=== PATIENT | female | born 1995 | race African-American/Black ===

== ENCOUNTER 2016-06-29 17:35 | Emergency (ER) | payer OTHER ==
[~2016-06-29] VITALS: Ht 157.5 cm; Wt 55.0 kg
[~2016-06-29 17:35] MED LIST: LEVE250 PO
[2016-06-29 18:20] VITALS: BP 101/59; PULSE 77; RESP 18; TEMP 99.2; O2SAT 100
[2016-06-29 18:40] VITALS: BP 118/72; PULSE 83; RESP 16; O2SAT 100
[2016-06-29] MEDS ORDERED: SODIUM CHLOR 0.9% 1000 ML INJ 1,000 ML IV ONE (19:04)
[2016-06-29] MEDS ORDERED: ACETAMINOPHEN 325 MG TAB PO ONE (19:15)
[2016-06-29] MEDS ORDERED: SODIUM CHLORIDE 0.9% FLUSH 5 ML FLUSH IVF PRN (19:15)
[2016-06-29 19:41] LABS: AUTOMATED NEUTROPHIL # 8.1 TH/MM3 (1.8-7.7); BASOPHIL # 0.1 TH/MM3 (0-0.2); BASOPHIL % 0.5 % (0.0-2.0); EOSINOPHIL % 0.2 % (0.0-4.0); HEMATOCRIT 31.6 % (35.0-46.0); LYMPH % 9.7 % (9.0-44.0); MEAN CORPUSCULAR HEMOGLOBIN 21.8 PG (27.0-34.0); MEAN CORPUSCULAR HGB CONC 31.2 % (32.0-36.0); MONO % 9.3 % (0.0-8.0); NEUT % 80.3 % (16.0-70.0); PLATELET COUNT 239 TH/MM3 (150-450); RED BLOOD COUNT 4.52 MIL/MM3 (4.00-5.30); RED CELL DISTRIBUTION WIDTH 16.6 % (11.6-17.2); WHITE BLOOD COUNT 10.2 TH/MM3 (4.0-11.0)
[2016-06-29 19:43] LABS: HEMO FLAGS AUTO DIFF
[2016-06-29 19:45] VITALS: RESP 16
[2016-06-29 19:49] LABS: ALKALINE PHOSPHATASE 72 U/L (45-117); ALT (GPT) 19 U/L (9-42); ANION GAP 10 MEQ/L (5-15); AST (GOT) 25 U/L (16-38); BICARBONATE 23.3 MEQ/L (21.0-32.0); BLOOD UREA NITROGEN 10 MG/DL (7-18); CHLORIDE 106 MEQ/L (98-107); GLOMERULAR FILTRATION RATE 111 ML/MIN (>89); MAGNESIUM 1.9 MG/DL (1.5-2.5); POTASSIUM 3.9 MEQ/L (3.5-5.1); SODIUM (NA) 139 MEQ/L (136-145); TOTAL BILIRUBIN ADULT 0.4 MG/DL (0.2-1.0)
[2016-06-29 20:18] LABS: PLATELET ESTIMATE SMEAR NORMAL (NORMAL); PLATELET MORPHOLOGY NORMAL (NORMAL); SCAN/DIFF AUTO DIFF CONFIRMED
--- NOTE | 2016-06-29 20:51 | RADRPT ---
EXAM DATE/TIME: 06/29/2016 20:00 [place] COMPARISON: No previous studies available for comparison. INDICATIONS : Syncope and seizure. RADIATION DOSE: 39.80 CTDIvol (mGy) MEDICAL HISTORY : Seizures. SURGICAL HISTORY : None. ENCOUNTER: Initial ACUITY: 1 day PAIN SCALE: Non-responsive LOCATION: cranial TECHNIQUE: Multiple contiguous axial images were obtained of the head. Using automated exposure control and adj ustment of the mA and/or kV according to patient size, radiation dose was kept as low as reasonably a chievable to obtain optimal diagnostic quality images. FINDINGS: CEREBRUM: The ventricles are normal for age. No evidence of midline shift, mass lesion, hemorrhage or acute in farction. No extra-axial fluid collections are seen. POSTERIOR FOSSA: The cerebellum and brainstem are intact. The 4th ventricle is midline. The cerebellopontine angle i s unremarkable. EXTRACRANIAL: The visualized portion of the orbits is intact. SKULL: The calvaria is intact. No evidence of skull fracture. CONCLUSION: Normal examination for a patient of this age. No significant change has occurred. zUair Bailey MD on June 29, 2016 at 20:49 Board Certified Radiologist. This report was verified electronically.
--- NOTE | 2016-06-29 21:54 | PD ---
HPI Chief Complaint: Seizure Time Seen by Provider: 18:55 Travel History International Travel<30 days: No Contact w/Intl Traveler<30days: No Traveled to known affect area: No History of Present Illness HPI Patient is a 20-year-old female who comes in after seizure today. She has history of seizures since 2013, and has been taking Keppra. She takes 750 mg of Keppra daily currently. She reports compliance with her medication. She says that recently she seems to be having more breakthrough seizures. She says she last had a seizure in April around [place] time. Today she comes in after having a seizure last night and then again this afternoon. She was seen to fall to the ground in her dorm room and vomit. One of the other students called the ambulance for her. She says she has been feeling well, denies any fever or chills. She does complain of a frontal headache right now. She says she has been under stress, which often causes her seizures. PFSH Past Medical History Asthma: No Blood Disorders: No Heart Rhythm Problems: No Cancer: No Cardiovascular Problems: No High Cholesterol: Yes Chemotherapy: No Chest Pain: No Congestive Heart Failure: No COPD: No Diabetes: No Diminished Hearing: No Endocrine: No Gastrointestinal Disorders: No Genitourinary: No Hypertension: No Immune Disorder: No Implanted Vascular Access Dvce: No Musculoskeletal: No Neurologic: No Psychiatric: No Reproductive: No Respiratory: No Radiation Therapy: No Seizures: Yes Sleep Apnea: No Thyroid Disease: No Tetanus Vaccination: < 5 Years Influenza Vaccination: No ?: Not LMP: UNK : 0 Para: 0 Miscarriage: 0 : 0 Past Surgical History Surgical History: No Previous Surgery Other Surgery: No Social History Alcohol Use: No Tobacco Use: No Substance Use: No Allergies-Medications (Allergen,Severity, Reaction): Coded Allergies: No Known Allergies (Unverified , 06/29/16) Reported Meds & Prescriptions Reported Meds & Active Scripts Active Reported Keppra (Levetiracetam) 250 Mg Tab 500 Mg PO BID Review of Systems Except as stated in HPI: all other systems reviewed are Neg General / Constitutional: No: Fever, Chills Eyes: No: Blurred Vision HENT: Positive: Headaches Cardiovascular: No: Chest Pain or Discomfort Respiratory: No: Cough, Shortness of Breath Gastrointestinal: No: Nausea, Vomiting Musculoskeletal: No: Edema, Pain Skin: No Rash, No Change in Pigmentation Neurologic: Positive: Seizures, No: Weakness, Dizziness Physical Exam Narrative GENERAL: Awake and alert, in no acute distress. SKIN: Warm and dry. HEAD: Atraumatic. Normocephalic. EYES: Pupils equal and round. No scleral icterus. Extraocular movements intact. ENT: Mucous membranes pink and moist. Bite rabago on the side of her tongue. NECK: Trachea midline. No JVD. No meningeal signs. CARDIOVASCULAR: Regular rate and rhythm. No murmur appreciated. RESPIRATORY: No accessory muscle use. Clear to auscultation. Breath sounds equal bilaterally. GASTROINTESTINAL: Abdomen soft, non-tender, nondistended. MUSCULOSKELETAL: No obvious deformities. No clubbing. No cyanosis. No edema. NEUROLOGICAL: Awake and alert. No obvious cranial nerve deficits. Motor grossly within normal limits. Normal speech. PSYCHIATRIC: Appropriate mood and affect; insight and judgment normal. Data Data Last Documented VS Vital Signs Date Time Temp Pulse Resp B/P Pulse Ox O2 Delivery O2 Flow Rate FiO2 06/29/16 19:45 16 06/29/16 18:40 83 118/72 100 Room Air 06/29/16 18:20 99.2 Orders Complete Blood Count With Diff (06/29/16 19:04) Drug Screen, Random Urine (06/29/16 19:04) Ct Brain W/O Iv Contrast(Rout) (06/29/16 ) Blood Glucose (06/29/16 19:04) Ecg Monitoring (06/29/16 19:04) Iv Access Insert/Monitor (06/29/16 19:04) Oximetry (06/29/16 19:04) Comprehensive Metabolic Panel (06/29/16 19:04) Sodium Chlor 0.9% 1000 Ml Inj (Ns 1000 M (06/29/16 19:04) Sodium Chloride 0.9% Flush (Ns Flush) (06/29/16 19:15) Ua Includes Microscopic (06/29/16 19:04) Urinalysis - C+S If Indicated (06/29/16 19:04) Ed Urine Pregnancytest Poc (06/29/16 19:04) Magnesium (Mg) (06/29/16 19:04) Phosphorus (Po4) (06/29/16 19:04) Acetaminophen (Tylenol) (06/29/16 19:15) Labs Laboratory Tests Test 06/29/16 06/29/16 19:10 21:45 White Blood Count 10.2 TH/MM3 Red Blood Count 4.52 MIL/MM3 Hemoglobin 9.9 GM/DL Hematocrit 31.6 % Mean Corpuscular Volume 70.0 FL Mean Corpuscular Hemoglobin 21.8 PG Mean Corpuscular Hemoglobin 31.2 % Concent Red Cell Distribution Width 16.6 % Platelet Count 239 TH/MM3 Mean Platelet Volume 8.8 FL Neutrophils (%) (Auto) 80.3 % Lymphocytes (%) (Auto) 9.7 % Monocytes (%) (Auto) 9.3 % Eosinophils (%) (Auto) 0.2 % Basophils (%) (Auto) 0.5 % Neutrophils # (Auto) 8.1 TH/MM3 Lymphocytes # (Auto) 1.0 TH/MM3 Monocytes # (Auto) 0.9 TH/MM3 Eosinophils # (Auto) 0.0 TH/MM3 Basophils # (Auto) 0.1 TH/MM3 CBC Comment AUTO DIFF Differential Comment AUTO DIFF CONFIRMED Platelet Estimate NORMAL Platelet Morphology Comment NORMAL Red Cell Morphology Comment NORMAL Sodium Level 139 MEQ/L Potassium Level 3.9 MEQ/L Chloride Level 106 MEQ/L Carbon Dioxide Level 23.3 MEQ/L Anion Gap 10 MEQ/L Blood Urea Nitrogen 10 MG/DL Creatinine 0.80 MG/DL Estimat Glomerular Filtration 111 ML/MIN Rate Random Glucose 90 MG/DL Calcium Level 8.6 MG/DL Phosphorus Level 2.7 MG/DL Magnesium Level 1.9 MG/DL Total Bilirubin 0.4 MG/DL Aspartate Amino Transf 25 U/L (AST/SGOT) Alanine Aminotransferase 19 U/L (ALT/SGPT) Alkaline Phosphatase 72 U/L Total Protein 7.1 GM/DL Albumin 3.8 GM/DL Urine Color YELLOW Urine Turbidity HAZY Urine pH 5.5 Urine Specific [place] 1.017 Urine Protein NEG mg/dL Urine Glucose (UA) NEG mg/dL Urine Ketones 40 mg/dL Urine Occult Blood NEG Urine Nitrite NEG Urine Bilirubin NEG Urine Urobilinogen LESS THAN 2.0 MG/DL Urine Leukocyte Esterase NEG Urine WBC 3 /hpf Urine Squamous Epithelial 2 /hpf Cells Urine Bacteria RARE /hpf Urine Mucus FEW /lpf Microscopic Urinalysis Comment CULT NOT INDICATED MDM Medical Decision Making Medical Screen Exam Complete: Yes Emergency Medical Condition: Yes Differential Diagnosis Seizure versus electrolyte abnormality versus infection Narrative Course Patient is a 20-year-old female who comes in after a seizure today. She has had 2 seizures in the last 24 hours. Exam shows no neurologic abnormalities, no signs of meningitis. IV established, labs sent. Labs show no acute abnormalities. CT of the head performed shows no acute abnormalities. Last [address] 06/29/16 0000 Signed Impressions: Service Date/Time: Wednesday, June 29, 2016 20:00 - CONCLUSION: Normal examination for a patient of this age. No significant change has occurred. Uzair Bailey MD Patient given IV fluids and Tylenol with resolution of her headache. I spoke with Dr. Thacker of neurology who suggests increasing her Keppra to 1000 mg twice a day. Patient given new prescription. Advised to follow-up with her neurologist. Advised to return to the ED as needed for any worsening symptoms. Diagnosis Primary Impression: Seizure Referrals: Xavier Thacker MD call for appointment Patient Instructions: General Instructions, Recurrent Seizures in Adults (DC) Additional Instructions: Follow up with neurology. Increase your Keppra to 1000mg twice a day. Return to the ED for any worsening symptoms. Scripts Levetiracetam (Keppra)1,000 Mg Tab1,000 Mg PO BID #60 TAB Ref 0 Prov:Kitty Whitaker MD 06/29/16 Disposition: 01 DISCHARGE HOME Condition: Stable Kitty Whitaker MD Jun 29, 2016 21:54
[2016-06-29 22:09] LABS: BACTERIA, URINE RARE /hpf; BLOOD, URINE NEG (NEG); COMMENT (UR) CULT NOT INDICATED; CULTURE IF INDICATED CULT NOT INDICATED; GLUCOSE,URINE NEG (NEG); KETONE, URINE 40 mg/dL (NEG); MUCUS URINE FEW /lpf (OCC); NITRITE,URINE NEG (NEG); PH, URINE 5.5 (5.0-8.5); SQUAMOUS EPITHELIAL CELL URINE 2 /hpf (0-5); URINE COLOR YELLOW (YELLW/STRAW)
[2016-06-29] MEDS ORDERED: KEPP10002 PO (22:24)
[2016-06-29] MEDS ORDERED: levETIRAcetam 500 MG TAB PO ONE (22:30)
[2016-06-29 22:34] LABS: AMPHETAMINE, URINE NEG (NEG); BARBITURATES, URINE NEG (NEG); COCAINE, URINE NEG (NEG)
== END 2016-06-29 23:07 | disposition home or self-care (01) ==
LOC: NEPA 17:35
DX: R56.9 Unspecified convulsions (principal); Z76.0 Encounter for issue of repeat prescription; Z30.49 Encounter for surveillance of other contraceptives
CPT/HCPCS: 70450; 80053; 80307; 81001; 83735; 84100; 84703; 85025; 96360; 99284; J7030

== ENCOUNTER 2017-07-26 08:45 | Emergency (ER) | payer OTHER ==
[~2017-07-26 08:45] MED LIST changes: +KEPP10002 PO
[2017-07-26 08:57] VITALS: BP 99/57; PULSE 90; RESP 16; TEMP 98.7; O2SAT 99
[2017-07-26] MEDS ORDERED: SODIUM CHLOR 0.9% 1000 ML INJ 1,000 ML IV ONE (09:09)
[2017-07-26] MEDS ORDERED: levETIRAcetam INJ 500 MG in SODIUM CHLORIDE 0.9% INJ 100 ML IV ONE (09:15)
[2017-07-26] MEDS ORDERED: SODIUM CHLORIDE 0.9% FLUSH 10 ML FLUSH IVF PRN (09:15)
--- NOTE | 2017-07-26 09:21 | PD ---
HPI Chief Complaint: Seizure Time Seen by Provider: 09:02 Travel History International Travel<30 days: No Contact w/Intl Traveler<30days: No Traveled to known affect area: No History of Present Illness HPI The patient is a 21-year-old [place] female who presents to the emergency department after a seizure. The patient has a history of seizures, is followed by a neurologist in [place]. She is in the local area for college. The patient had a witnessed seizure last night lasted approximately 1-2 minutes, no evidence of trauma or fall and according to the bystander. The seizure resolved on its own. However, she had another seizure this morning lasting approximately 30 seconds according to the bystander in the room. The patient's friend/bystander states the seizure appeared to be "shaking "of the upper and lower extremities and some twitching of the mouth. The patient does states she bit the right side of her tongue and did lose urine. She is currently on Keppra 500 mg twice a day. Last seizure was in May. She denies any headache, chest pain, shortness of breath, nausea, vomiting, or abdominal pain. She cannot recall her last menstrual cycle. Symptoms are mild to moderate, exacerbated by history of seizures, and currently resolved. PFSH Past Medical History Asthma: No Blood Disorders: No Heart Rhythm Problems: No Cancer: No Cardiovascular Problems: No High Cholesterol: Yes Chemotherapy: No Chest Pain: No Congestive Heart Failure: No COPD: No Diabetes: No Diminished Hearing: No Endocrine: No Gastrointestinal Disorders: No Genitourinary: No Hypertension: No Immune Disorder: No Implanted Vascular Access Dvce: No Musculoskeletal: No Neurologic: No Psychiatric: No Reproductive: No Respiratory: No Radiation Therapy: No Seizures: Yes Sleep Apnea: No Thyroid Disease: No ?: Not : 0 Para: 0 Miscarriage: 0 : 0 Past Surgical History Other Surgery: No Social History Alcohol Use: No Tobacco Use: No Substance Use: No Allergies-Medications (Allergen,Severity, Reaction): Coded Allergies: No Known Allergies (Unverified Allergy, Unknown, 07/26/17) Reported Meds & Prescriptions Reported Meds & Active Scripts Active Keppra (Levetiracetam) 1,000 Mg Tab 1,000 Mg PO BID Review of Systems Except as stated in HPI: all other systems reviewed are Neg General / Constitutional: No: Fever HENT: Positive: Other (bite to the right aspect of the tongue), No: Headaches, Neck Pain Cardiovascular: No: Chest Pain or Discomfort Respiratory: No: Shortness of Breath Gastrointestinal: No: Nausea, Vomiting, Abdominal Pain Genitourinary: Positive: Incontinence, No: Dysuria Neurologic: Positive: Seizures, No: Headache, Change in Mentation Physical Exam Narrative GENERAL: Awake, alert, pleasant 21-year-old female who appears her stated age and is in no acute respiratory distress. SKIN: Focused skin assessment warm/dry. HEAD: Atraumatic. Normocephalic. EYES: Pupils equal and round. 3 mm bilateral and reactive. ENT: No nasal bleeding or discharge. Bite with superficial laceration to the right aspect of the tongue. NECK: Trachea midline. No JVD. CARDIOVASCULAR: Regular rate and rhythm. No murmur appreciated. RESPIRATORY: No accessory muscle use. Clear to auscultation. Breath sounds equal bilaterally. GASTROINTESTINAL: Abdomen soft, non-tender, nondistended. No rebound tenderness. MUSCULOSKELETAL: No obvious deformities. No clubbing. No cyanosis. No edema. NEUROLOGICAL: Awake and alert. No obvious cranial nerve deficits. Motor grossly within normal limits. Normal speech. Nonfocal. Oriented 4. Follows commands without difficulty. Back: No tenderness of thoracic or lumbar vertebrae. PSYCHIATRIC: Appropriate mood and affect; insight and judgment normal. Data Data Last Documented VS Vital Signs Date Time Temp Pulse Resp B/P (MAP) Pulse Ox O2 Delivery O2 Flow Rate FiO2 07/26/17 09:05 17 100 Room Air 07/26/17 08:57 98.7 90 99/57 (71) Orders Orders Complete Blood Count With Diff (07/26/17 09:09) Blood Glucose (07/26/17 09:09) Ecg Monitoring (07/26/17 09:09) Iv Access Insert/Monitor (07/26/17 09:09) Oximetry (07/26/17 09:09) Comprehensive Metabolic Panel (07/26/17 09:09) Sodium Chlor 0.9% 1000 Ml Inj (Ns 1000 M (07/26/17 09:09) Sodium Chloride 0.9% Flush (Ns Flush) (07/26/17 09:15) Urinalysis - C+S If Indicated (07/26/17 09:09) Ed Urine Pregnancytest Poc (07/26/17 09:09) Levetiracetam Inj (Keppra Inj) (07/26/17 09:15) Magnesium (Mg) (07/26/17 09:09) Electrocardiogram (07/26/17 ) Labs Laboratory Tests Test 07/26/17 09:17 07/26/17 11:15 White Blood Count 7.3 TH/MM3 Red Blood Count 4.58 MIL/MM3 Hemoglobin 10.7 GM/DL Hematocrit 32.7 % Mean Corpuscular Volume 71.4 FL Mean Corpuscular Hemoglobin 23.4 PG Mean Corpuscular Hemoglobin Concent 32.8 % Red Cell Distribution Width 15.7 % Platelet Count 235 TH/MM3 Mean Platelet Volume 8.1 FL Neutrophils (%) (Auto) 66.0 % Lymphocytes (%) (Auto) 18.4 % Monocytes (%) (Auto) 9.3 % Eosinophils (%) (Auto) 5.9 % Basophils (%) (Auto) 0.4 % Neutrophils # (Auto) 4.8 TH/MM3 Lymphocytes # (Auto) 1.3 TH/MM3 Monocytes # (Auto) 0.7 TH/MM3 Eosinophils # (Auto) 0.4 TH/MM3 Basophils # (Auto) 0.0 TH/MM3 CBC Comment DIFF FINAL Differential Comment Blood Urea Nitrogen 12 MG/DL Creatinine 0.84 MG/DL Random Glucose 85 MG/DL Total Protein 7.2 GM/DL Albumin 3.8 GM/DL Calcium Level 9.1 MG/DL Magnesium Level 1.9 MG/DL Alkaline Phosphatase 59 U/L Aspartate Amino Transf (AST/SGOT) 14 U/L Alanine Aminotransferase (ALT/SGPT) 14 U/L Total Bilirubin 0.3 MG/DL Sodium Level 137 MEQ/L Potassium Level 3.8 MEQ/L Chloride Level 107 MEQ/L Carbon Dioxide Level 22.5 MEQ/L Anion Gap 8 MEQ/L Estimat Glomerular Filtration Rate 104 ML/MIN Urine Color YELLOW Urine Turbidity CLEAR Urine pH 5.0 Urine Specific [place] 1.020 Urine Protein NEG mg/dL Urine Glucose (UA) NEG mg/dL Urine Ketones TRACE mg/dL Urine Occult Blood NEG Urine Nitrite NEG Urine Bilirubin NEG Urine Urobilinogen LESS THAN 2.0 MG/DL Urine Leukocyte Esterase NEG Urine WBC 1 /hpf Urine Squamous Epithelial Cells 1 /hpf Urine Uric Acid Crystals OCC /hpf Urine Mucus FEW /lpf Microscopic Urinalysis Comment CULT NOT INDICATED MDM Medical Decision Making Medical Screen Exam Complete: Yes Emergency Medical Condition: Yes Medical Record Reviewed: Yes Interpretation(s) EKG reveals normal sinus rhythm with a rate 81. No ischemic changes or ectopy noted. Laboratory Tests Test 07/26/17 09:17 07/26/17 11:15 White Blood Count 7.3 TH/MM3 Red Blood Count 4.58 MIL/MM3 Hemoglobin 10.7 GM/DL Hematocrit 32.7 % Mean Corpuscular Volume 71.4 FL Mean Corpuscular Hemoglobin 23.4 PG Mean Corpuscular Hemoglobin Concent 32.8 % Red Cell Distribution Width 15.7 % Platelet Count 235 TH/MM3 Mean Platelet Volume 8.1 FL Neutrophils (%) (Auto) 66.0 % Lymphocytes (%) (Auto) 18.4 % Monocytes (%) (Auto) 9.3 % Eosinophils (%) (Auto) 5.9 % Basophils (%) (Auto) 0.4 % Neutrophils # (Auto) 4.8 TH/MM3 Lymphocytes # (Auto) 1.3 TH/MM3 Monocytes # (Auto) 0.7 TH/MM3 Eosinophils # (Auto) 0.4 TH/MM3 Basophils # (Auto) 0.0 TH/MM3 CBC Comment DIFF FINAL Differential Comment Blood Urea Nitrogen 12 MG/DL Creatinine 0.84 MG/DL Random Glucose 85 MG/DL Total Protein 7.2 GM/DL Albumin 3.8 GM/DL Calcium Level 9.1 MG/DL Magnesium Level 1.9 MG/DL Alkaline Phosphatase 59 U/L Aspartate Amino Transf (AST/SGOT) 14 U/L Alanine Aminotransferase (ALT/SGPT) 14 U/L Total Bilirubin 0.3 MG/DL Sodium Level 137 MEQ/L Potassium Level 3.8 MEQ/L Chloride Level 107 MEQ/L Carbon Dioxide Level 22.5 MEQ/L Anion Gap 8 MEQ/L Estimat Glomerular Filtration Rate 104 ML/MIN Urine Color YELLOW Urine Turbidity CLEAR Urine pH 5.0 Urine Specific [place] 1.020 Urine Protein NEG mg/dL Urine Glucose (UA) NEG mg/dL Urine Ketones TRACE mg/dL Urine Occult Blood NEG Urine Nitrite NEG Urine Bilirubin NEG Urine Urobilinogen LESS THAN 2.0 MG/DL Urine Leukocyte Esterase NEG Urine WBC 1 /hpf Urine Squamous Epithelial Cells 1 /hpf Urine Uric Acid Crystals OCC /hpf Urine Mucus FEW /lpf Microscopic Urinalysis Comment CULT NOT INDICATED Differential Diagnosis Differential diagnosis includes seizure, breakthrough seizure, noncompliance, subtherapeutic Keppra level, hyponatremia, closed head injury, intracranial hemorrhage, arrhythmia. Narrative Course IV was established, labs are drawn and sent, and the patient was placed on cardiac telemetry monitoring and continuous pulse oximetry monitoring. EKG was ordered and interpreted. Patient was administered Keppra 500 mg intravenously and monitored in the emergency department. Bedside UA test was negative. UA is negative. Labs are unremarkable. Will be placed on Peridex for the tongue trauma. She is advised to follow-up with her neurologist. She will be provided a school excuse for today. Return if symptoms worsen or progress. Diagnosis Primary Impression: Seizure Additional Impression: Laceration of tongue Qualified Codes: S01.512A - Laceration without foreign body of oral cavity, initial encounter Patient Instructions: General Instructions Additional Instructions: Continue Keppra as previously directed. Follow-up with your neurologist. Peridex as directed. Work/school excuse for today. Return if symptoms worsen or progress. Med/Other Pt SpecificInfo: Prescription(s) given Scripts Chlorhexidine Gluconate (Mouth) Liq (Peridex Liq) 0.12% Soln 15 ML SWISH-SPIT BID, #473 ML 0 Refills Prov: Rodolfo Fried MD 07/26/17 Disposition: 01 DISCHARGE HOME Condition: Stable Rodolfo Fried MD Jul 26, 2017 09:21
[2017-07-26 09:42] LABS: AUTOMATED NEUTROPHIL # 4.8 TH/MM3 (1.8-7.7); BASOPHIL % 0.4 % (0.0-2.0); EOSINOPHIL # 0.4 TH/MM3 (0-0.4); EOSINOPHIL % 5.9 % (0.0-4.0); HEMATOCRIT 32.7 % (35.0-46.0); HEMOGLOBIN 10.7 GM/DL (11.6-15.3); LYMPH % 18.4 % (9.0-44.0); LYMPHOCYTE # 1.3 TH/MM3 (1.0-4.8); MEAN CELL VOLUME 71.4 FL (80.0-100.0); MEAN CORPUSCULAR HEMOGLOBIN 23.4 PG (27.0-34.0); MEAN CORPUSCULAR HGB CONC 32.8 % (32.0-36.0); MEAN PLATELET VOLUME 8.1 FL (7.0-11.0); MONO % 9.3 % (0.0-8.0); MONOCYTE # 0.7 TH/MM3 (0-0.9); PLATELET COUNT 235 TH/MM3 (150-450); RED BLOOD COUNT 4.58 MIL/MM3 (4.00-5.30); RED CELL DISTRIBUTION WIDTH 15.7 % (11.6-17.2); WHITE BLOOD COUNT 7.3 TH/MM3 (4.0-11.0)
[2017-07-26 10:02] LABS: ALBUMIN 3.8 GM/DL (3.4-5.0); AST (GOT) 14 U/L (15-37); BICARBONATE 22.5 MEQ/L (21.0-32.0); BLOOD UREA NITROGEN 12 MG/DL (7-18); CALCIUM 9.1 MG/DL (8.5-10.1); CHLORIDE 107 MEQ/L (98-107); CREATININE 0.84 MG/DL (0.50-1.00); GLOMERULAR FILTRATION RATE 104 ML/MIN (>89); GLUCOSE,RANDOM 85 MG/DL (74-106); MAGNESIUM 1.9 MG/DL (1.5-2.5); SODIUM (NA) 137 MEQ/L (136-145)
[2017-07-26 10:03] LABS: ALT (GPT) 14 U/L (10-53)
[2017-07-26 10:05] LABS: ALKALINE PHOSPHATASE 59 U/L (45-117); TOTAL BILIRUBIN ADULT 0.3 MG/DL (0.2-1.0); TOTAL PROTEIN 7.2 GM/DL (6.4-8.2)
[2017-07-26 11:57] LABS: BILIRUBIN, URINE NEG (NEG); BLOOD, URINE NEG (NEG); GLUCOSE,URINE NEG (NEG); KETONE, URINE TRACE mg/dL (NEG); MUCUS URINE FEW /lpf (OCC); NITRITE,URINE NEG (NEG); SQUAMOUS EPITHELIAL CELL URINE 1 /hpf (0-5); URIC ACID CRYSTALS, URINE OCC /hpf; URINE COLOR YELLOW (YELLW/STRAW); URINE LEUKOCYTE ESTERASE NEG (NEG)
[2017-07-26] MEDS ORDERED: PERI0.126 SWISH-SPIT (12:12)
[2017-07-27] MEDS ORDERED: LEVE500T8 PO (10:28)
[2017-07-27] MEDS ORDERED: LEVE500 PO (13:46)
--- NOTE | 2017-07-27 23:17 | EKG ---
Date Performed: 07/26/2017 Time Performed: 09:17:26 PTAGE: 21 years EKG: Sinus rhythm NORMAL ECG PREVIOUS TRACING : 12/21/2013 12.34 Since the prior tracing, there has been no significant powell DOCTOR: Keyshawn Prado Interpretating Date/Time 07/27/2017 23:15:51
== END 2017-07-26 13:29 | disposition home or self-care (01) ==
LOC: NEPD 08:45
DX: R56.9 Unspecified convulsions (principal)
CPT/HCPCS: 80053; 81001; 83735; 84703; 85025; 93005; 96365; 99284; J1953; J7030

== ENCOUNTER 2017-07-26 16:20 | Observation (INO) | payer OTHER ==
[~2017-07-26 16:20] MED LIST changes: +PERI0.126 SWISH-SPIT
[2017-07-26 16:43] VITALS: BP 111/66; PULSE 85; RESP 16; O2SAT 98
[2017-07-26 16:56] VITALS: BP 95/55; PULSE 82; RESP 14; TEMP 98.9; O2SAT 97
--- NOTE | 2017-07-26 20:39 | PD ---
HPI Chief Complaint: Seizure Time Seen by Provider: 19:49 Travel History International Travel<30 days: No Contact w/Intl Traveler<30days: No Traveled to known affect area: No History of Present Illness HPI Patient is a 21-year-old female presenting to the emergency department for evaluation of recurrent seizures. Patient reports a seizure disorder, she normally has one seizure every 4-5 months. She reports that she has had 3 seizures now in the last 24 hours. Patient states that she was incontinent all 3 times. She reports that she was here this morning and was evaluated and then discharged. She went home to take a nap, she had another seizure and her boyfriend called 911. She denies any new stressors, illicit drug use, sleep disturbances. Patient reports compliance with Keppra which she takes twice a day. She has no other physical complaints at this time. Symptom onset was fairly sudden, symptom severity is mild to moderate, there are no alleviating factors, there does not appear to be any exacerbating factors at this time. Patient denies any pain. PFSH Past Medical History Asthma: No Blood Disorders: No Heart Rhythm Problems: No Cancer: No Cardiovascular Problems: No High Cholesterol: Yes Chemotherapy: No Chest Pain: No Congestive Heart Failure: No COPD: No Diabetes: No Diminished Hearing: No Endocrine: No Gastrointestinal Disorders: No Genitourinary: No Hypertension: No Immune Disorder: No Implanted Vascular Access Dvce: No Musculoskeletal: No Neurologic: No Psychiatric: No Reproductive: No Respiratory: No Radiation Therapy: No Seizures: Yes Sleep Apnea: No Thyroid Disease: No : 0 Para: 0 Miscarriage: 0 : 0 Past Surgical History Other Surgery: No Social History Alcohol Use: No Tobacco Use: No Substance Use: No Allergies-Medications (Allergen,Severity, Reaction): Coded Allergies: No Known Allergies (Unverified Allergy, Unknown, 07/26/17) Reported Meds & Prescriptions Reported Meds & Active Scripts Active Peridex Liq (Chlorhexidine Gluconate (Mouth) Liq) 0.12% Soln 15 Ml SWISH-SPIT BID Keppra (Levetiracetam) 1,000 Mg Tab 1,000 Mg PO BID Review of Systems Except as stated in HPI: all other systems reviewed are Neg Genitourinary: Positive: Incontinence (With seizure activity) Neurologic: Positive: Seizures Physical Exam Narrative GENERAL: Well-developed, well-nourished, alert -[place] female. Presenting in no acute distress. SKIN: Warm and dry. HEAD: Atraumatic. Normocephalic. EYES: Pupils equal and round. No scleral icterus. No injection or drainage. ENT: No nasal bleeding or discharge. Mucous membranes pink and moist. NECK: Trachea midline. No JVD. CARDIOVASCULAR: Regular rate and rhythm. RESPIRATORY: No accessory muscle use. Clear to auscultation. Breath sounds equal bilaterally. GASTROINTESTINAL: Abdomen soft, non-tender, nondistended. Hepatic and splenic margins not palpable. MUSCULOSKELETAL: Extremities without clubbing, cyanosis, or edema. No obvious deformities. NEUROLOGICAL: Awake and alert. No obvious cranial nerve deficits. Motor grossly within normal limits. Five out of 5 muscle strength in the arms and legs. Normal speech. PSYCHIATRIC: Appropriate mood and affect; insight and judgment normal. Data Data Last Documented VS Vital Signs Date Time Temp Pulse Resp B/P (MAP) Pulse Ox O2 Delivery O2 Flow Rate FiO2 07/26/17 16:56 98.9 82 14 95/55 (68) 97 Room Air Orders Orders Electrocardiogram (07/26/17 ) Ecg Monitoring (07/26/17 20:39) Iv Access Insert/Monitor (07/26/17 20:39) Oximetry (07/26/17 20:39) Admit Order (Ed Use Only) (07/26/17 20:42) [facility] Medical Decision Making Medical Screen Exam Complete: Yes Emergency Medical Condition: Yes Medical Record Reviewed: Yes Interpretation(s) Vital Signs Date Time Temp Pulse Resp B/P (MAP) Pulse Ox O2 Delivery O2 Flow Rate FiO2 07/26/17 16:56 98.9 82 14 95/55 (68) 97 Room Air 07/26/17 16:43 Differential Diagnosis Metabolic abnormality versus seizure disorder versus other Narrative Course Patient is a 21-year-old female that presented to emergency department for a second time today with recurrent seizures. Patient has no focal deficits on exam. Labs from her initial visit this morning were reviewed, there were no acute findings identified. Patient has CT scan of the brain on July 06, 2017, at that time there were no acute findings. Discussed with my attending physician. Also discussed with Dr. Moreno who accepted admission. Patient is agreeable to stay as she is concerned why her seizures have increased in frequency. Admit orders placed. Diagnosis Primary Impression: Frequent seizures Admitting Information Admitting Physician Requests: Observation Condition: Stable Kelsea Rueda Jul 26, 2017 20:39
[2017-07-26] MEDS ORDERED: levETIRAcetam INJ 100 ML IV ONE (20:45)
[2017-07-26] MEDS ORDERED: ACETAMINOPHEN/HYDROcodone 325 MG/5 MG TAB PO PRN (20:45)
[2017-07-26] MEDS ORDERED: LACTULOSE SYRUP 20 GM/30 ML CUP PO PRN (20:45)
[2017-07-26] MEDS ORDERED: ACETAMINOPHEN/HYDROcodone 325 MG/10 MG TAB PO PRN (20:45)
[2017-07-26] MEDS ORDERED: LORazepam 2 MG/ML VIAL IV PUSH PRN (20:45)
[2017-07-26] MEDS ORDERED: MAGNESIUM HYDROXIDE SUSP 30 ML CUP PO PRN (20:45)
[2017-07-26] MEDS ORDERED: ACETAMINOPHEN 325 MG TAB PO PRN (20:45)
[2017-07-26] MEDS ORDERED: SODIUM CHLORIDE 0.9% FLUSH 10 ML FLUSH IV FLUSH PRN (20:45)
[2017-07-26] MEDS ORDERED: SENNOSIDES 8.6 MG TAB PO PRN (20:45)
[2017-07-26] MEDS ORDERED: ONDANSETRON HCL 4 MG/2 ML VIAL IVP PRN (20:45)
[2017-07-26] MEDS ORDERED: BISACODYL 10 MG SUPP RECTAL PRN (20:45)
--- NOTE | 2017-07-26 20:45 | HHI.HP ---
[facility] No Primary Care Physician Admission Diagnosis RECURRENT/INCREASED SEIZURES Diagnoses: (1) Seizure Diagnosis: Principal (2) Hypotension Diagnosis: Principal Travel History International Travel<30 Days: No Contact w/Intl Traveler <30 Da: No Traveled to Known Affected Are: No History of Present Illness This is a 21-year-old female with a PMH of Seizure Disorder who presented to the ER with episode of seizure activity. Seen in ER earlier today on 07/26/17 for similar complaints, s/p 2 episodes of seizure activity w/ tongue laceration. Was given Keppra 500mg IV and d/c'd home. Returns now w/ another episode of seizure. States she is on Keppra 500mg bid, compliant w/ meds. Has Neurologist back home in [place] who prescribes her medications. No recent changes to meds. Denies fever, chills, nausea/vomiting or diarrhea. On arrival , BP 95/55, HR 82, O2 sat 97% on RA Afebrile. Labs from this morning essentially unremarkable. UA negative. Review of Systems Except as stated in HPI: all other systems reviewed are Neg ROS: 14 point review of systems otherwise negative. Past Family Social History Past Medical History PMH: Seizure Disorder Past Surgical History PAST SURGICAL HISTORY: None Allergies: Coded Allergies: No Known Allergies (Unverified Allergy, Unknown, 07/26/17) Family History PAST FAMILY HISTORY: Reviewed. No h/o DM or CAD Social History PAST SOCIAL HISTORY: Negative for alcohol, tobacco or drugs. Physical Exam Vital Signs Vital Signs Date Time Temp Pulse Resp B/P (MAP) Pulse Ox O2 Delivery O2 Flow Rate FiO2 07/26/17 16:56 98.9 82 14 95/55 (68) 97 Room Air 07/26/17 16:43 Physical Exam PE: GENERAL: Very pleasant young black female in no acute distress. HEENT: PERRLA, EOMI. No scleral icterus or conjunctival pallor. No lid lag or facial droop. CARDIOVASCULAR: Regular rate and rhythm. No obvious murmurs to auscultation. No chest tenderness to palpation. RESPIRATORY: No obvious rhonchi or wheezing. Clear to auscultation. Breath sounds equal bilaterally. GASTROINTESTINAL: Abdomen soft, non-tender, nondistended. BS normal. MUSCULOSKELETAL: Extremities without clubbing, cyanosis, or edema. No obvious deformities. NEUROLOGICAL: Awake, alert and oriented x4. No focal neurologic deficits. Moving both upper and lower extremities spontaneously. Caprini VTE Risk Assessment Caprini VTE Risk Assessment: No/Low Risk (score <= 1) Caprini Risk Assessment Model Point Value = 1 Point Value = 2 Point Value = 3 Point Value = 5 Age 41-60 Minor surgery BMI > 25 kg/m2 Swollen legs Varicose veins or History of unexplained or recurrent spontaneous Oral contraceptives or hormone replacement Sepsis (< 1 month) Serious lung disease, including pneumonia (< 1 month) Abnormal pulmonary function Acute myocardial infarction Congestive heart failure (< 1 month) History of inflammatory bowel disease Medical patient at bed rest Age 61-74 Arthroscopic surgery Major open surgery (> 45 min) Laparoscopic surgery (> 45 min) Malignancy Confined to bed (> 72 hours) Immobilizing plaster cast Central venous access Age >= 75 History of VTE Family history of VTE Factor V Leiden Prothrombin [id number] Lupus anticoagulant Anticardiolipin antibodies Elevated serum homocysteine Heparin-induced thrombocytopenia Other congenital or acquired thrombophilia Stroke (< 1 month) Elective arthroplasty Hip, pelvis, or leg fracture Acute spinal cord injury (< 1 month) Prophylaxis Regimen Total Risk Factor Score Risk Level Prophylaxis Regimen 0-1 Low Early ambulation 2 Moderate Order ONE of the following: *Sequential Compression Device (SCD) *Heparin 5000 units SQ BID 3-4 Higher Order ONE of the following medications: *Heparin 5000 units SQ TID *Enoxaparin/Lovenox 40 mg SQ daily (WT < 150 kg, CrCl > 30 mL/min) *Enoxaparin/Lovenox 30 mg SQ daily (WT < 150 kg, CrCl > 10-29 mL/min) *Enoxaparin/Lovenox 30 mg SQ BID (WT < 150 kg, CrCl > 30 mL/min) AND/OR *Sequential Compression Device (SCD) 5 or more Highest Order ONE of the following medications: *Heparin 5000 units SQ TID (Preferred with Epidurals) *Enoxaparin/Lovenox 40 mg SQ daily (WT < 150 kg, CrCl > 30 mL/min) *Enoxaparin/Lovenox 30 mg SQ daily (WT < 150 kg, CrCl > 10-29 mL/min) *Enoxaparin/Lovenox 30 mg SQ BID (WT < 150 kg, CrCl > 30 mL/min) AND *Sequential Compression Device (SCD) Assessment and Plan Problem List: (1) Seizure ICD Code: R56.9 - Seizure Status: Acute (2) Hypotension ICD Code: I95.9 - Hypotension, unspecified Assessment and Plan A/P: 1. Seizure: h/o Seizure Disorder w/ breakthrough seizure. On Keppra 500mg bid , compliant w/ medications. S/p Keppra 500mg IV x1 in ER on earlier presentation, continue w/ Keppra. Seizure Precautions. Ativan prn. Consult Neurology for further recommendations. 2. Hypotension: BP 90's systolic, asymptomatic. IVF for hydration, will monitor BP closely. 3. DVT Prophylaxis: SCD/Teds. 4. Social work for d/c planning as needed. 5. Case discussed w/ ER physician at length, labs/records/imaging reviewed by me. Linda Moreno MD Jul 26, 2017 20:45
--- NOTE | 2017-07-26 20:48 | PD ---
Physical Exam Date Seen by Provider: Jul 26, 2017 Time Seen by Provider: 20:00 Narrative I, Dr. Carmichael, have reviewed the advance practice practitioner's documentation and am in agreement, met with the patient face to face, made the diagnosis, and the medical decision making was done by me. *My assessment and Findings: Patient seen and evaluated with PA, please see PA notes for further details. Patient has had 3 seizures today already, seen earlier for seizure by Dr. Fried. At this point, vital signs are stable and she is awake and oriented. Considering this change in her pattern of seizures, my plan would be to admit her for further observation and evaluation by neurology. Case has been discussed with Dr. Peters for admission. Lab work had been done earlier this morning and did not show significant metabolic issues. Data Data Last Documented VS Vital Signs Date Time Temp Pulse Resp B/P (MAP) Pulse Ox O2 Delivery O2 Flow Rate FiO2 07/26/17 16:56 98.9 82 14 95/55 (68) 97 Room Air Orders Orders Electrocardiogram (07/26/17 ) Ecg Monitoring (07/26/17 20:39) Iv Access Insert/Monitor (07/26/17 20:39) Oximetry (07/26/17 20:39) Admit Order (Ed Use Only) (07/26/17 20:42) ^ Seizure Precautions (07/26/17 20:41) Lorazepam Inj (Ativan Inj) (07/26/17 20:45) Consult Neurology (07/26/17 ) Levetiracetam Inj (Keppra Inj) (07/26/17 20:45) Place In Observation (07/26/17 ) Vital Signs (Adult) Q4H (07/26/17 20:41) Activity Oob With Assistance (07/26/17 20:41) Diet Regular Basic (07/27/17 Breakfast) Sodium Chlor 0.9% 1000 Ml Inj (Ns 1000 M (07/26/17 20:41) Sodium Chloride 0.9% Flush (Ns Flush) (07/26/17 20:45) Sodium Chloride 0.9% Flush (Ns Flush) (07/26/17 21:00) Ondansetron Inj (Zofran Inj) (07/26/17 20:45) Comprehensive Metabolic Panel (07/27/17 06:00) Complete Blood Count With Diff (07/27/17 06:00) Scd Bilateral/Knee High GUILLE.BID (07/26/17 20:41) [facility] Bilateral/Knee High GUILLE.QSHIFT (07/26/17 20:44) Acetaminophen (Tylenol) (07/26/17 20:45) Acetamin-Hydrocod 325-5 Mg (Karval 5-325 (07/26/17 20:45) Acetamin-Hydrocod 325-10 Mg (Karval 10-32 (07/26/17 20:45) Docusate Sodium-Senna (Selina-Colace) (07/26/17 21:00) Magnesium Hydroxide Liq (Milk Of Magnesi (07/26/17 20:45) Sennosides (Senokot) (07/26/17 20:45) Bisacodyl Supp (Dulcolax Supp) (07/26/17 20:45) Lactulose Liq (Lactulose Liq) (07/26/17 20:45) MDM Medical Record Reviewed: Yes Supervised Visit with MARCO: Yes Diagnosis Primary Impression: Frequent seizures Admitting Information Admitting Physician Requests: Admit Condition: Stable Ivan Carmichael MD Jul 26, 2017 20:48
[2017-07-26 20:52] VITALS: RESP 16; O2SAT 98
[2017-07-26] MEDS: SODIUM CHLORIDE 0.9% FLUSH 10 ML FLUSH IV FLUSH SCH (21:00)
[2017-07-26] MEDS: DOCUSATE SODIUM 50 MG/SENNA 8.6 MG TAB PO SCH (21:00)
[2017-07-26] MEDS: SODIUM CHLOR 0.9% 1000 ML INJ 1,000 ML IV SCH (21:22)
[2017-07-26 23:28] VITALS: BP 101/53; PULSE 96; RESP 18; TEMP 98.9; O2SAT 99
[2017-07-27 07:04] LABS: AUTOMATED NEUTROPHIL # 5.2 TH/MM3 (1.8-7.7); BASOPHIL % 0.6 % (0.0-2.0); EOSINOPHIL # 0.4 TH/MM3 (0-0.4); EOSINOPHIL % 4.2 % (0.0-4.0); HEMATOCRIT 30.5 % (35.0-46.0); HEMOGLOBIN 9.8 GM/DL (11.6-15.3); LYMPH % 26.6 % (9.0-44.0); LYMPHOCYTE # 2.3 TH/MM3 (1.0-4.8); MEAN CELL VOLUME 71.9 FL (80.0-100.0); MEAN CORPUSCULAR HEMOGLOBIN 23.1 PG (27.0-34.0); MEAN CORPUSCULAR HGB CONC 32.2 % (32.0-36.0); MEAN PLATELET VOLUME 8.2 FL (7.0-11.0); MONO % 8.3 % (0.0-8.0); MONOCYTE # 0.7 TH/MM3 (0-0.9); NEUT % 60.3 % (16.0-70.0); PLATELET COUNT 228 TH/MM3 (150-450); RED BLOOD COUNT 4.25 MIL/MM3 (4.00-5.30); RED CELL DISTRIBUTION WIDTH 15.6 % (11.6-17.2); WHITE BLOOD COUNT 8.7 TH/MM3 (4.0-11.0)
[2017-07-27 07:24] LABS: ALBUMIN 3.1 GM/DL (3.4-5.0); ALKALINE PHOSPHATASE 53 U/L (45-117); ALT (GPT) 12 U/L (10-53); AST (GOT) 9 U/L (15-37); BICARBONATE 20.9 MEQ/L (21.0-32.0); BLOOD UREA NITROGEN 9 MG/DL (7-18); CALCIUM 8.4 MG/DL (8.5-10.1); CHLORIDE 109 MEQ/L (98-107); GLOMERULAR FILTRATION RATE 128 ML/MIN (>89); GLUCOSE,RANDOM 76 MG/DL (74-106); SODIUM (NA) 140 MEQ/L (136-145); TOTAL BILIRUBIN ADULT 0.3 MG/DL (0.2-1.0); TOTAL PROTEIN 6.2 GM/DL (6.4-8.2)
[2017-07-27 08:30] VITALS: BP 110/55; PULSE 91; RESP 18; TEMP 99; O2SAT 100
[2017-07-27] MEDS ORDERED: POTASSIUM CHLORIDE 20 MEQ CONTROLLED RELEASE TAB PO ONE (08:30)
[2017-07-27] MEDS: SODIUM CHLORIDE 0.9% FLUSH 10 ML FLUSH IV FLUSH SCH (09:00)
[2017-07-27] MEDS: DOCUSATE SODIUM 50 MG/SENNA 8.6 MG TAB PO SCH (09:00)
[2017-07-27] MEDS: SODIUM CHLOR 0.9% 1000 ML INJ 1,000 ML IV SCH (09:02)
[2017-07-27] MEDS ORDERED: LEVE500T8 PO (10:28)
[2017-07-27] MEDS ORDERED: levETIRAcetam 500 MG TAB PO SCH ×2 (10:30→21:00)
--- NOTE | 2017-07-27 11:11 | HHI.PR ---
Subjective Remarks f/u sz. No recurrence of sz. Denies headache, dizziness and muscle aches. Discussed with RN, per neurology patient can be discharged home after obtaining lab work and EEG. Results will be discussed by neurology with patient in the clinic. Objective Vitals Vital Signs Date Time Temp Pulse Resp B/P (MAP) Pulse Ox O2 Delivery O2 Flow Rate FiO2 07/27/17 08:30 99.0 91 18 110/55 (73) 100 07/26/17 23:28 98.9 96 18 101/53 (69) 99 07/26/17 21:24 07/26/17 20:52 16 98 Room Air 07/26/17 16:56 98.9 82 14 95/55 (68) 97 Room Air 07/26/17 16:43 I/O 07/26/17 07/26/17 07/26/17 07/27/17 07/27/17 07/27/17 07:00 15:00 23:00 07:00 15:00 23:00 Intake Total 100 ml Balance 100 ml Intake IV Total 100 ml Result Diagram: 07/27/1761207/27/17612 Objective Remarks GENERAL: Very pleasant young black female in no acute distress. HEENT: PERRLA, EOMI. No scleral icterus or conjunctival pallor. No lid lag or facial droop. CARDIOVASCULAR: Regular rate and rhythm. No obvious murmurs to auscultation. No chest tenderness to palpation. RESPIRATORY: No obvious rhonchi or wheezing. Clear to auscultation. Breath sounds equal bilaterally. GASTROINTESTINAL: Abdomen soft, non-tender, nondistended. BS normal. MUSCULOSKELETAL: Extremities without clubbing, cyanosis, or edema. No obvious deformities. NEUROLOGICAL: Awake, alert and oriented x4. No focal neurologic deficits. Moving both upper and lower extremities spontaneously. Procedures none A/P Problem List: (1) Seizure ICD Code: R56.9 - Seizure Status: Acute (2) Hypotension ICD Code: I95.9 - Hypotension, unspecified Assessment and Plan 1. Seizure: h/o Seizure Disorder w/ breakthrough seizure. On Keppra 500mg bid , compliant w/ medications. S/p Keppra 500mg IV x1 in ER on earlier presentation, continue w/ Keppra. Discussed with neurology, increase Keppra to 1000 mg twice a day and up to 3 days to 1500 mg twice a day. Patient can be discharged home today after obtaining lab work (ESR, RPR, NEVILLE, TSH, B12, AST and ALT) and EEG. Results will be discussed by neurology with the patient in the clinic during follow-up. Seizure Precautions. Ativan prn. Patient not allowed to drive, swim alone, Carry young children and climb heights 2. Hypotension: BP 90's systolic, asymptomatic. IVF for hydration, will monitor BP closely. Improved 3. DVT Prophylaxis: SCD/Teds. Discharge Planning Discharge patient to home Condition on discharge: Improved Regular Diet as tolerated Ad Sierra activity. See above Rx written: Guy Follow-up with primary care physician and neurology Shahriar Quintanilla MD Jul 27, 2017 11:11
[2017-07-27 12:03] VITALS: BP 101/56; PULSE 79; RESP 18; TEMP 99.4; O2SAT 99
[2017-07-27] MEDS ORDERED: LEVE500 PO (13:46)
--- NOTE | 2017-07-27 13:46 | HHI.DCPOC ---
Discharge Care Plan Diagnosis: (1) Frequent seizures Goals to Promote Your Health * To prevent worsening of your condition and complications * To maintain your health at the optimal level Directions to Meet Your Goals Take your medications as prescribed Follow your dietary instruction Follow activity as directed Keep your appointments as scheduled Take your immunizations and boosters as scheduled If your symptoms worsen call your PCP, if no PCP go to Urgent Care Center or Emergency Room Smoking is Dangerous to Your Health. Avoid second hand smoke Call the 24-hour hour crisis hotline for domestic abuse at [employer] PA-C Jul 27, 2017 13:46
[2017-07-27 15:57] LABS: FREE T4 0.88 NG/DL (0.76-1.46)
[2017-07-27 16:02] VITALS: BP 112/72; PULSE 83; RESP 18; TEMP 99.2; O2SAT 100
--- NOTE | 2017-07-27 22:27 | MB ---
cc: Xavier Thacker MD, David J MD DATE OF CONSULT: 07/27/2017 A 21-year-old right-handed woman with a history of hypercholesterolemia. She has a history of seizures dating back to [address] Head. That was a new onset seizure. CT scan of the brain was negative. Since that time she has had seizures, a few a year, probably about 10-15 seizures. She takes Keppra 500 mg b.i.d. Her last seizure was in May when she had missed a few nighttime doses. She had one before that in February when she had not missed any doses. She usually takes her medicine twice a day and is fairly compliant according to her. Nevertheless, she came in with 3 seizures now yesterday and thus came into the hospital. Her meds have not been adjusted since 500 of Keppra twice a day. I note back on 12/22/2013 she had a normal EEG. She had an echocardiogram on 12/22/2013 that was normal. She was evidently put on a seizure med sometime after that. I note she came back in February of 2014, had a grand mal seizure. MRI had been normal prior. She was not on any meds. They had actually spoken with me over the phone and I had said to put her on Keppra which she was started on. I believe she has been on that ever since but has had several other seizures. REVIEW OF SYSTEMS: She denies any hypertension, diabetes, heart problems, chest pain, A. fib, cardiac arrhythmias, renal, hepatic or pulmonary disease, thyroid disease, lupus, ulcer, cancer or stroke. SOCIAL HISTORY: She is not a smoker or a drinker. She is in school locally. She sees a neurologist up in [place] when she is up there. FAMILY HISTORY: Negative for cancer, seizure or stroke. MEDICATIONS: She is on Keppra 500 mg b.i.d., although it is written in the ER chart 1000 mg b.i.d. she tells me she is on 500 b.i.d. ALLERGIES: NO KNOWN DRUG ALLERGIES. PHYSICAL EXAM: VITAL SIGNS: T-max 99, 79, 18, 101/56. NECK: There were no carotid bruits. HEART: Regular rhythm. I do not detect a murmur. NEUROLOGIC: Pupils are equal. Visual zavala are full. Extraocular movements intact without nystagmus. Face symmetric with normal sensation. Tongue was midline. There is no drift. She had normal strength in upper and lower extremities bilaterally. DTRs are 1+ throughout. Toes are downgoing bilaterally. Pinprick is intact throughout. She is not ataxic on finger to nose. Speech is fluent. She is not aphasic. She gives a good history. IMAGING STUDIES In the past, she had an MRI of the brain in 2013 with and without contrast that was normal. She had a CAT scan of the brain done on 06/29/2016 that was read as normal. She had an EEG read as normal back in 2013. LABORATORY DATA: Her CBC shows a mild anemia, otherwise normal. Urine drug screen has been negative. UA negative. Basic metabolic profile has been essentially normal. LFTs normal. Albumin 3.1. IMPRESSION: History of seizures. She had an EEG done today. She could be discharged. I would have her take 1000 mg twice a day of Keppra for 3 days then 1500 mg b.i.d. and follow up with me in the office. I am just going to check some blood work before she goes for other things that can cause seizures, which she can go and we can follow up those lab results. I note she has had other spells where she has maybe small periods of lost periods of time. It could be small complex partial seizures. Her usual seizures are grand mal seizures with no warning, but she does have incontinence and tongue biting with those. MD NADYA Wong//shine , 01:30 PM , 09:35 PM
--- NOTE | 2017-07-28 00:08 | EKG ---
Date Performed: 07/26/2017 Time Performed: 20:59:04 PTAGE: 21 years EKG: Sinus rhythm NONSPECIFIC T-WAVE ABNORMALITY BORDERLINE ECG PREVIOUS TRACING : 07/26/2017 09.17 Compared to prior tracing, now with non-specific ST/T wave changes DOCTOR: Keyshawn Prado Interpretating Date/Time 07/28/2017 00:06:37
--- NOTE | 2017-07-28 07:02 | MG ---
cc: Xavier Thacker MD, David J MD [phone] INDICATIONS: History of seizures, on Keppra, multiple seizures. INTERPRETATION: The recording shows symmetric alpha and beta waves. A 10 Hz 60 microvolt posterior and diffuse rhythm is seen. Photic stimulation is performed without significant posterior driving. Some bifrontal slowing is noted and diffuse slowing at the beginning of the recording. It is unclear if she is becoming drowsy during that time, such as at epoch 32. Some of the bifrontal delta slowing is slightly sharply contoured, also epoch at 33. A slight sharp slow wave complex is seen bifrontally at epoch 41 and then what appears to be a small sharp slow wave complex seen again a little bit more prominent on the right than the left at epoch 57. Then, some more discrete sharps are seen slow wave, almost a spike wave type, again a little bit more prominent on the right than the left at epoch 81. On the transverse montage, it does look a little bit more on the right temporal parietal region and similar findings a few other times such as at epoch 102 there appears to be some small spikes and phase reversing over the right posterior temporal head region. A right central phase reversing small spike is seen at epoch 109. IMPRESSION: Some sharps seen but more prominent over the right hemisphere and I would say there could be a seizure focus in the right posterior temporal head region. At other times, this is a little bit more bifrontal. This is an abnormal EEG. MD NADYA Wong// , 05:51 PM , 11:47 PM
== END 2017-07-27 18:31 | disposition home or self-care (01) ==
LOC: NEDAMB 16:20 → NEDA 20:44 → NEPGCP 22:16
PROVIDERS: ADMIT Internal Medicine; ATTEND Internal Medicine
DX: G40.409 Other generalized epilepsy and epileptic syndromes, not intractable, without status epilepticus (principal); I95.9 Hypotension, unspecified; R94.01 Abnormal electroencephalogram [EEG]; E78.00 Pure hypercholesterolemia, unspecified
CPT/HCPCS: 80053; 82550; 82607; 84439; 84443; 84450; 84460; 85025; 85652; 86038; 86592; 93005; 95819; 96365; 99285; G0378; J1953; J7030